=== PATIENT | female | born 1975 | race Caucasian/White ===

== ENCOUNTER → 2018-12-05 | Outpatient (CLI) | payer BC | LOC: DL.US 14:26 | PROVIDERS: ATTEND Family Medicine | DX: M79.604 Pain in right leg (principal); I83.91 Asymptomatic varicose veins of right lower extremity | CPT/HCPCS: 93971 ==

== ENCOUNTER 2023-09-14 07:32 | Day surgery (SDC) | payer BC ==
[2023-09-14] MEDS: Dextrose 5%-0.45% NaCl 1,000 ML IV SCH (07:45)
[2023-09-14 11:17] VITALS: BP 122/64; PULSE 70
== END 2023-09-14 09:50 | disposition home or self-care (01) ==
LOC: DL.ENDO 07:32
PROVIDERS: ATTEND Internal Medicine Gastroenterology
DX: K21.9 Gastro-esophageal reflux disease without esophagitis (principal); K44.9 Diaphragmatic hernia without obstruction or gangrene; M54.50 Low back pain, unspecified; R71.8 Other abnormality of red blood cells; E66.09 Other obesity due to excess calories; Z68.41 Body mass index [BMI] 40.0-44.9, adult; Z88.2 Allergy status to sulfonamides
CPT/HCPCS: 00731; 81025; 87077; J7042